=== PATIENT | male | born 1950 | race Caucasian/White ===

== ENCOUNTER → 2017-04-03 | Outpatient (CLI) | payer OTHER, MEDICARE | LOC: FIMAGING 07:00 | PROVIDERS: ATTEND Internal Medicine | DX: Z11.59 Encounter for screening for other viral diseases (principal) | CPT/HCPCS: 82627-90; G0103; G0472 ==

== ENCOUNTER → 2017-05-18 | Outpatient (CLI) | payer OTHER, MEDICARE | LOC: BHFA 09:30 | PROVIDERS: ATTEND Internal Medicine Cardiovascular Disease | DX: I48.91 Unspecified atrial fibrillation (principal) ==

== ENCOUNTER 2017-10-28 13:45 | Emergency (ER) | payer OTHER, MEDICARE ==
[2017-10-28 13:52] VITALS: TEMP 98.2
--- NOTE | 2017-10-28 14:25 | EDPHY ---
H & P Stated Complaint: abdominal pain and bloating starting approx 1100 Time Seen by Provider: 10/28/17 14:23 HPI/ROS: CHIEF COMPLAINT: Abdominal pain, constipation HISTORY OF PRESENT ILLNESS: The patient is to the ED with complaints of constipation for the past 2 and half days. The patient does report some mild lower abdominal pain. He has mild nausea but no vomiting. The patient denies significant past medical history. He takes no medications. The patient reports a negative colonoscopy in June of 2017. REVIEW OF SYSTEMS: A comprehensive 10 point review of systems is otherwise negative aside from elements mentioned in the history of present illness. Source: Patient Exam Limitations: No limitations - Personal History Current Tetanus/Diphtheria Vaccine: Yes Current Tetanus Diphtheria and Acellular Pertussis (TDAP): Yes Tetanus Vaccine Date: 2013 - Medical/Surgical History Hx Asthma: No Hx Chronic Respiratory Disease: No Hx Diabetes: No Hx Cardiac Disease: Yes Hx Renal Disease: No Hx Cirrhosis: No Hx Alcoholism: No Hx HIV/AIDS: No Hx Splenectomy or Spleen Trauma: No Other PMH: , ortho surg. in teens, A flutter, A fib, cardiac ablation, murmur, PERICARDITIS. - Social History Smoking Status: Former smoker - Physical Exam Exam: General Appearance: Alert, no distress Eyes: Pupils equal and round no pallor or injection ENT, Mouth: Mucous membranes moist Respiratory: There are no retractions, lungs are clear to auscultation Cardiovascular: Regular rate and rhythm Gastrointestinal: Abdomen is soft with minimal left lower quadrant tenderness, no masses, bowel sounds normal Rectal: Stool high in the rectal vault Neurological: Grossly normal motor exam Skin: Warm and dry, no rashes Musculoskeletal: Neck is supple nontender Extremities: symmetrical, full range of motion Constitutional: Initial Vital Signs Temperature (C) 36.8 C 10/28/17 13:48 Heart Rate 70 10/28/17 13:48 Respiratory Rate 18 10/28/17 13:48 Blood Pressure 167/96 H 10/28/17 13:48 O2 Sat (%) 97 10/28/17 13:48 O2 Delivery Mode Room Air Allergies/Adverse Reactions: No Known Allergies Allergy (Verified 10/28/17 13:47) Home Medications: Medication Instructions Recorded NK [No Known Home Meds] 10/28/17 Medical Decision Making - Diagnostics Imaging Results: Imaging Impressions Abdomen X-Ray 10/28/17 14:38 Impression: Constipation. ED Course/Re-evaluation: The patient presents to the ED with constipation. The patient did have stool high in his rectum. There is nothing to despite impacted in his lower rectum. The patient did undergo a soapsuds and fleets enema in the emergency department initially with minimal output. After some time the patient eventually had a large bowel movement with complete resolution of his symptoms. At 6:00 p.m. he is asymptomatic. The patient will be discharged home with customary aftercare instructions and return precautions. Differential Diagnosis: Differential diagnosis considered includes constipation, obstipation, obstruction, pancreatitis, diverticulitis - Data Points Laboratory Results: Laboratory Results 10/28/17 14:38 10/28/17 14:38 10/28/17 10/28/17 14:38 14:38 WBC 6.51 10^3/uL 10^3/uL (3.80-9.50) RBC 5.39 10^6/uL 10^6/uL (4.40-6.38) Hgb 15.5 g/dL g/dL (13.7-17.5) Hct 46.2 % % (40.0-51.0) MCV 85.7 fL fL (81.5-99.8) MCH 28.8 pg pg (27.9-34.1) MCHC 33.5 g/dL g/dL (32.4-36.7) RDW 14.0 % % (11.5-15.2) Plt Count 192 10^3/uL 10^3/uL (150-400) MPV 10.0 fL fL (8.7-11.7) Neut % (Auto) 67.9 % % (39.3-74.2) Lymph % (Auto) 20.9 % % (15.0-45.0) Mccone % (Auto) 8.0 % % (4.5-13.0) Eos % (Auto) 2.5 % % (0.6-7.6) Baso % (Auto) 0.5 % % (0.3-1.7) Nucleat RBC Rel Count 0.0 % % (0.0-0.2) Absolute Neuts (auto) 4.43 10^3/uL 10^3/uL (1.70-6.50) Absolute Lymphs (auto) 1.36 10^3/uL 10^3/uL (1.00-3.00) Absolute Monos (auto) 0.52 10^3/uL 10^3/uL (0.30-0.80) Absolute Eos (auto) 0.16 10^3/uL 10^3/uL (0.03-0.40) Absolute Basos (auto) 0.03 10^3/uL 10^3/uL (0.02-0.10) Absolute Nucleated RBC 0.00 10^3/uL 10^3/uL (0-0.01) Immature Gran % 0.2 % % (0.0-1.1) Immature Gran # 0.01 10^3/uL 10^3/uL (0.00-0.10) Sodium 141 mEq/L mEq/L (135-145) Potassium 4.2 mEq/L mEq/L (3.5-5.2) Chloride 105 mEq/L mEq/L (97-110) Carbon Dioxide 22 mEq/l mEq/l (22-31) Anion Gap 14 mEq/L mEq/L (8-16) BUN 21 mg/dL mg/dL (7-23) Creatinine 1.1 mg/dL mg/dL (0.7-1.3) Estimated GFR > 60 Glucose 86 mg/dL mg/dL (70-100) Calcium 9.4 mg/dL mg/dL (8.5-10.4) Total Bilirubin 0.6 mg/dL mg/dL (0.1-1.4) Conjugated Bilirubin 0.2 mg/dL mg/dL (0.0-0.5) Unconjugated Bilirubin 0.4 mg/dL mg/dL (0.0-1.1) AST 33 IU/L IU/L (17-59) ALT 39 IU/L IU/L (21-72) Alkaline Phosphatase 91 IU/L IU/L (38-126) Total Protein 7.4 g/dL g/dL (6.3-8.2) Albumin 4.2 g/dL g/dL (3.5-5.0) Lipase 233 IU/L IU/L (23-300) Medications Given: Discontinued Medications Sodium Chloride (Ns) 1,000 mls @ 0 mls/hr IV EDNOW ONE; Wide Open PRN Reason: Protocol Stop: 10/28/17 14:29 Last Admin: 10/28/17 14:40 Dose: 1,000 mls Polyethylene Glycol/Electrolytes (Gavilyte - G) 4,000 ml PO ONCE ONE Stop: 10/28/17 17:43 Last Admin: 10/28/17 18:00 Dose: 4,000 ml Departure - Departure Disposition: Home, Routine, Self-Care Clinical Impression: Constipation Qualifiers: Constipation type: other constipation type Qualified Code(s): K59.09 - Other constipation Abdominal pain Qualifiers: Abdominal location: left lower quadrant Qualified Code(s): R10.32 - Left lower quadrant pain Condition: Good Instructions: Constipation (ED) Additional Instructions: 1. Please return to the emergency department for any severe abdominal pain, vomiting or other concerns. 2. Please use milk of magnesia and fiber supplementation for ongoing symptoms of constipation. Referrals: Mouna Marcos MD [Primary Care Provider] - As per Instructions
[2017-10-28] MEDS ORDERED: NS 1,000 ML IV ONE (14:28)
[2017-10-28 15:05] LABS: PLATELET COUNT 192 10^3/uL (150-400)
[2017-10-28 15:34] VITALS: RESP 16; O2SAT 95
[2017-10-28] MEDS ORDERED: PEG 3350/NA SULF,BICARB,CL/KCL (GAVILYTE-G) 4000 ML BTL PO ONE (17:42)
[2017-10-28 18:02] VITALS: BP 164/94; PULSE 81
== END 2017-10-28 18:00 | disposition home or self-care (01) ==
DX: K59.09 Other constipation (principal); E86.9 Volume depletion, unspecified

== ENCOUNTER → 2017-12-28 | Day surgery (SDC) | payer OTHER, MEDICARE ==
--- NOTE | 2017-12-31 13:59 | GOP ---
[f rep st] OPERATIVE REPORT DATE OF OPERATION: 12/28/2017 SURGEON: King Alvarenga MD PREOPERATIVE DIAGNOSIS: Elevated prostate specific antigen. POSTOPERATIVE DIAGNOSIS: Elevated prostate specific antigen. PROCEDURE PERFORMED: Transrectal ultrasound of the prostate with ultrasound-guided biopsies of the p rostate. FINDINGS: INDICATIONS: The patient is a 67-year-old male with elevated PSA. After discussing options, he elec sidney to come in for prostate biopsies. DESCRIPTION OF PROCEDURE: After informed consent and with the patient in the left lateral decubitus position, the transrectal ultrasound probe was inserted into the bladder. Images were taken and the volume was calculated. The periprosthetic tissue was anesthetized with 10 mL of 1% lidocaine. Then, 12 core biopsies were obtained from the right and left base mid and apical regions. The patient max erated the procedure well and was discharged in stable condition. /[id number]/MODL
== END | disposition home or self-care (01) ==
LOC: BMCIMAGING 07:09
PROVIDERS: ATTEND Urology
PROC: 0VB03ZX Excision of Prostate, Percutaneous Approach, Diagnostic (ICD-10-PCS; principal; 2017-12-28)
DX: R97.20 Elevated prostate specific antigen [PSA] (principal)

== ENCOUNTER → 2018-02-07 | Outpatient (CLI) | payer OTHER, MEDICARE ==
[~2018-02-07] MED LIST: GADOBUTROL 10 ML VIAL IVP ONE
== END ==
LOC: FIMAGING 07:31
PROVIDERS: ATTEND Urology
DX: C61 Malignant neoplasm of prostate (principal); K57.30 Diverticulosis of large intestine without perforation or abscess without bleeding
CPT/HCPCS: 72197; 76377; A9585

== ENCOUNTER → 2018-10-15 | Outpatient (CLI) | payer OTHER, MEDICARE | LOC: FIMAGING 07:29 | PROVIDERS: ATTEND Urology | DX: C61 Malignant neoplasm of prostate (principal) | CPT/HCPCS: 72197; 76377; A9585; 82565-PO ==

== ENCOUNTER → 2018-11-05 | Outpatient (CLI) | payer OTHER, MEDICARE | LOC: BMCIMAGING 09:09 | PROVIDERS: ATTEND Urology | DX: R05 Cough (principal); C61 Malignant neoplasm of prostate ==

== ENCOUNTER → 2018-11-12 | Outpatient (CLI) | payer OTHER, MEDICARE ==
[~2018-11-12] MED LIST changes: -GADOBUTROL 10 ML VIAL IVP ONE; +IOPAMIDOL (ISOVUE-300) 100 ML BTL ONE
== END ==
LOC: FIMAGING 07:37
PROVIDERS: ATTEND Urology
DX: K76.9 Liver disease, unspecified (principal); K57.30 Diverticulosis of large intestine without perforation or abscess without bleeding; C61 Malignant neoplasm of prostate; M47.815 Spondylosis without myelopathy or radiculopathy, thoracolumbar region
CPT/HCPCS: 74177; Q9967

== ENCOUNTER → 2018-11-19 | Outpatient (CLI) | payer OTHER, MEDICARE | LOC: FIMAGING 08:13 | PROVIDERS: ATTEND Urology | DX: Z12.89 Encounter for screening for malignant neoplasm of other sites (principal); C61 Malignant neoplasm of prostate | CPT/HCPCS: 78306; A9503 ==

== ENCOUNTER 2018-12-10 05:30 | Inpatient (IN) | payer OTHER, MEDICARE ==
[2018-12-10] MEDS ORDERED: ceFAZolin 2 GM/DEXTROSE 100 ML IV ONE (05:55)
[2018-12-10] MEDS ORDERED: LR 1,000 ML IV ONE (05:56)
--- NOTE | 2018-12-10 06:43 | PDHPUP ---
History & Physical Update H&P update statement: This history and physical update is based on an assessment of the patient which was completed after admission or registration (within 24 hours), but prior to the surgery/procedure. H&P update: H&P reviewed & patient examined, no change in patient's condition since H&P completed
[2018-12-10] MEDS ORDERED: MIDAZOLAM 2 MG/2 ML VIAL ONE (07:07)
[2018-12-10] MEDS ORDERED: BUPIVACAINE 0.5% 30 ML SDV ONE (07:09)
[2018-12-10] MEDS ORDERED: MIDAZOLAM 2 MG/2 ML VIAL IVP ONE (07:11)
--- NOTE | 2018-12-10 07:11 | PDANEPAE ---
ANE History of Present Illness here for radical prostatectomy for prostate CA ANE Past Medical History - Cardiovascular History Hx Hypertension: No Hx Arrhythmias: Yes Hx Chest Pain: No Hx Coronary Artery / Peripheral Vascular Disease: No Hx CHF / Valvular Disease: No Hx Palpitations: No Cardiovascular History Comment: PREV A-FIB LAST ABLATION 11/2014. NONE SINCE THEN - Pulmonary History Hx COPD: No Hx Asthma/Reactive Airway Disease: No Hx Recent Upper Respiratory Infection: Yes Hx Oxygen in Use at Home: No Hx Sleep Apnea: No Sleep Apnea Screening Result - Last Documented: Positive Pulmonary History Comment: DX KIP 02/2015 DIFFICULTY IN GETTING C-PAP GAVE UP HAD RECENT PULSE OXIMETRY TESTING. TO BRING RESULTS DOS. URI 09/2018 RESIDUAL NON PRODUCTIVE COUGH - Neurologic History Hx Cerebrovascular Accident: No Hx Seizures: No Hx Dementia: No - Endocrine History Hx Diabetes: No - Renal History Hx Renal Disorders: No - Liver History Hx Hepatic Disorders: No - Neurological & Psychiatric Hx Hx Neurological and Psychiatric Disorders: No - Cancer History Hx Cancer: Yes Cancer History Comment: NEW DX PROSTATE CA - Congenital Disorder History Hx Congenital Disorders: No - GI History Hx Gastrointestinal Disorders: No - Other Health History Other Health History: DDD RECENT ANGELICA - Chronic Pain History Chronic Pain: No - Surgical History Prior Surgeries: ANGELICA LOWER BACK 02/2018. HEART ABLATION X2 MOST RECENT 11/2014. ORIF JAW. LT EYE DETACHED RETINA ANE Review of Systems Review of Systems: - Exercise capacity METS (RN): 4 METS ANE Patient History - Allergies Allergies/Adverse Reactions: No Known Allergies Allergy (Verified 10/28/17 13:47) - Home Medications Home Medications: Ibuprofen [Motrin (*)] 200 mg PO TID PRN 11/19/18 [Last Taken 11/26/18] - NPO status NPO Since - Liquids (Date): 12/09/18 NPO Since - Liquids (Time): 21:00 NPO Since - Solids (Date): 12/09/18 NPO Since - Solids (Time): 12:00 - Smoking Hx Smoking Status: Former smoker - Family Anes Hx Family Hx Anesthesia Complications: NEG ANE Labs/Vital Signs - Vital Signs Blood Pressure: 148/80 Heart Rate: 83 Respiratory Rate: 16 O2 Sat (%): 94 Height: 182.88 cm Weight: 97.522 kg ANE Physical Exam - Airway Neck exam: FROM Mallampati Score: Class 2 Mouth exam: normal dental/mouth exam - Pulmonary Pulmonary: no respiratory distress, no rales or rhonchi - Cardiovascular Cardiovascular: regular rate and rhythym, no murmur, rub, or gallop - ASA Status ASA Status: III ANE Anesthesia Plan Anesthesia Plan: general endotracheal anesthesia Total IV Anesthesia: No
[2018-12-10] MEDS ORDERED: LIDOCAINE 2% 100 MG/5 ML SYR ONE (07:14)
[2018-12-10] MEDS ORDERED: ROCURONIUM 100 MG/10 ML VIAL ONE ×2 (07:14→07:50)
[2018-12-10] MEDS ORDERED: PROPOFOL 200 MG/20 ML VIAL ONE ×2 (07:15→09:52)
[2018-12-10] MEDS ORDERED: fentaNYL 100 MCG/2 ML INJ ONE ×2 (07:15→07:50)
[2018-12-10] MEDS ORDERED: SUGAMMADEX SODIUM 200 MG/2 ML VIAL IVP ONE (07:50)
[2018-12-10] MEDS ORDERED: METOPROLOL TARTRATE 5 MG/5 ML INJ ONE (07:50)
[2018-12-10] MEDS ORDERED: DEXAMETHASONE 4 MG/ML VIAL ONE (07:50)
[2018-12-10] MEDS ORDERED: ONDANSETRON 4 MG/2 ML VIAL ONE (07:50)
[2018-12-10] MEDS ORDERED: HYDROmorphONE/DILAUDID 2 MG/ML INJ IVP PRN (09:39)
[2018-12-10] MEDS ORDERED: NALOXONE HCL 0.4 MG/ML INJ IVP PRN (09:39)
[2018-12-10] MEDS ORDERED: MEPERIDINE 25 MG/0.5 ML AMP IVP PRN (09:39)
[2018-12-10] MEDS ORDERED: oxyCODONE IR 5 MG TAB PO PRN (09:39)
[2018-12-10] MEDS ORDERED: LABETALOL HCL 5 MG/ML 20 ML MDV IVP PRN (09:39)
[2018-12-10] MEDS ORDERED: PROMETHAZINE HCL 25 MG/ML INJ IVP PRN (09:39)
[2018-12-10] MEDS ORDERED: fentaNYL 100 MCG/2 ML INJ IVP PRN (09:39)
[2018-12-10] MEDS ORDERED: DIAZEPAM 5 MG/ML 1 ML SYR IVP PRN (09:39)
[2018-12-10] MEDS ORDERED: LR 500 ML IV PRN (09:39)
[2018-12-10] MEDS ORDERED: ACETAMINOPHEN 500 MG TAB PO PRN (09:39)
[2018-12-10] MEDS ORDERED: PHENYLEPHRINE HCL 100 MCG/ML SYR IVP PRN (09:39)
[2018-12-10] MEDS ORDERED: HYDROmorphONE/DILAUDID 2 MG/ML INJ ONE (09:59)
[2018-12-10] MEDS ORDERED: KETOROLAC 30 MG/1 ML SDV ONE (09:59)
[2018-12-10] MEDS ORDERED: HYDROmorphONE/DILAUDID 1 MG/ML INJ IVP PRN (10:28)
[2018-12-10] MEDS ORDERED: ACETAMINOPHEN 325 MG TAB PO PRN (10:28)
[2018-12-10] MEDS ORDERED: ZOLPIDEM TARTRATE 5 MG TAB PO PRN (10:30)
--- NOTE | 2018-12-10 10:41 | POSTOPPROG ---
Post Op Note Date of Operation: 12/10/18 Surgeon: Krzysztof Suarez [employer] Specialist: SUNNY Murphy Consult- Dr Abbott Anesthesiologist: Demond Anesthesia: GET(General Endotracheal) Pre-op Diagnosis: Prostate Cancer Post-op Diagnosis: Same Indication: Prostate cancer Procedure: Robotic Assisted Radical Prostatectomy, Bilateral Pelvic Lymph Node Dissect Findings: Small tear in mesentery Inf/Abcess present in the surg proc area at time of surgery?: No Depth: Organ Space EBL: 50-100 Drains: Quinn Funez Specimen(s): Prostate and bilateral pelvic lymph nodes
[2018-12-10] MEDS ORDERED: D5W 1/2 NS 1,000 ML IV SCH (10:45)
--- NOTE | 2018-12-10 10:52 | POSTANESTH ---
Post Anesthetic Evaluation Cardiovascular Status: Normal, Stable Respiratory Status: Normal, Stable Level of Consciousness/Mental Status: Can Participate in Eval, Alert and Oriented Pain Control: Adequate, Prn Tx Ordered Nausea/Vomiting Control: Adequate, Prn Tx Ordered Complications Possibly Related to Anesthesia: None Noted (No repeat episodes of the Afib with RVR throughout the case or inthe post operative course in PACU. Did recommend a monitored bed for the next 24 hours)
--- NOTE | 2018-12-10 11:37 | GOP ---
[f rep st] OPERATIVE REPORT DATE OF OPERATION: 12/10/2018 SURGEON: Krzysztof Suarez MD REGULATOR TESTER: Barb Newton CFA ANESTHESIA: General. PREOPERATIVE DIAGNOSIS: Prostate cancer. POSTOPERATIVE DIAGNOSIS: Prostate cancer. PROCEDURE PERFORMED: Robotic assisted radical prostatectomy with bilateral pelvic lymph node dissect ion. FINDINGS: INDICATIONS: This is a gentleman with biopsy-proven prostate cancer. Discussion was had with the pa tient about the risks and benefits of the variety of treatment options, and he decided on robotic pro statectomy. DESCRIPTION OF PROCEDURE: Consent was obtained. Patient was brought to the operating room. A time- out was done where the patient was identified, as well as the procedure that was to be performed. Wh ile he was being prepped for the operation, it was noted that he went into rapid atrial fibrillation. This was quickly taken care of with IV metoprolol and he returned to normal sinus rhythm with a nor mal rate rapidly. Decision was made to proceed with the operation. The skin was prepped and draped in the normal sterile fashion. A small incision was made just above the umbilicus. This was carried down sharply and with blunt dissection down to the rectus fascia. T he rectus fascia was then cut with Metzenbaum scissors and a trocar was inserted. When the camera wa s put in place and CO2 insufflation was begun, it was noted that there was a small tear in the mesent gurvinder just below the site of the trocar. At this point, a consultation was obtained by Dr. Abbott who came in to look at this tear in the fat. His belief was that this was strictly a tear in the fat and there was no evidence of any other injuries, specifically to the bowel or to any significant blo od vessels. Four additional ports were put into place, all under video guidance, 2 on the right, 2 o n the left, 3 of which were robotic ports, the 4th with an assistant director of security port. [place] dissectors and scissors were utilized to do a bilateral pelvic lymph node dissection. This was done by incising the peritoneum overlying the iliac artery and vein. There a were few adhesions in the left lower quadrant that had to be taken prior to this. Once the retroperitoneum was opened, the iliac external iliac vein was identified on either side and dissection was done between it and the obturator nerve, and the lymph node packet was taken on either side and sent to Pathology for permanent section. There was no evidence of any significant bleeding and decision was then made on the anterior peritoneum until the space of Retzius could be entered. This was carried down to the symphysis pubis and out laterally. The fat overlying the pelvic fascia was excised and incision was made in the fascia lateral to the prostate on either side. The pubopros tatic ligaments were taken down sharply. The dorsal vein was tied tightly with a 0 Vicryl suture. A n incision was then made between the bladder and the prostate. The bladder was opened and the Donaldson catheter brought out through this incision. The dissection was continued until the bladder was compl etely from the prostate. The catheter was then put on traction so as to elevate the prosta te. Dissection was continued posteriorly through Denonvilliers' fascia until the bilateral vas defer ens were cut and the seminal vesicles were dissected out. The lateral pedicles were taken with clips and cautery. The dissection was continued out toward the apex. The dorsal vein complex was then cu t with electrocautery. The urethra was cut with scissors. The rectal urethralis attachments were ta noel sharply and the prostate was then from its bed. It was put into a bag for later remova l. There was no evidence of any significant bleeding. The anastomosis was then done between the hayden dder neck and the urethra utilizing a double-armed barbed suture. This was done over a Donaldson cathete r and when the Donaldson catheter was irrigated, there was no evidence of any leakage. At this point, Dr. Abbott came back in the room to reinspect the tear in the fat, and once again, there was no evidence of any change in this. There was no bleeding and no evidence of any bile leak . The decision was made to leave this alone and let it heal on its own. The Quinn-Funez drain was then put in through the right lateral trocar and put down toward the pelvis. The robot was undocke d. The midline incision was made slightly larger so the prostate could be brought through the incisi on. It was sent to Pathology for identification and pathologic examination. The rectus fascia was c losed with a 2-0 Vicryl suture. The skin was closed with 4-0 Monocryl. All needle, sponge, instrume nt counts were correct. The patient remained in normal sinus rhythm throughout the case once it was normalized. There were no other complications. He was transferred to the recovery room in good cond ition. CONSULT: Dr. Abbott. /[id number]/MODL
[2018-12-10] MEDS: HEPARIN 5,000 UNIT/0.5 ML INJ SC SCH ×2 (14:10→22:44)
--- NOTE | 2018-12-10 14:43 | GOP ---
[f rep st] OPERATIVE REPORT DATE OF OPERATION: 12/10/2018 SURGEON: Du Abbott MD RETAIL SALESPERSON: None. ANESTHESIA: General endotracheal. ANESTHESIOLOGIST: Kleber Lagos DO. PREOPERATIVE DIAGNOSIS: Possible bowel injury. POSTOPERATIVE DIAGNOSIS: Possible bowel injury. PROCEDURE PERFORMED: Intraoperative consultation, abdominal exploration, rule out bowel injury. FINDINGS: It appears as though during cutdown, there was a small mesenteric injury, which was done sharply. I see no damage to any great vessels, any bowel , or any major vascular structure. SPECIMENS: None. ESTIMATED BLOOD LOSS: 2 cc. INDICATIONS: This is an intraoperative consultation by Dr. Suarez. Briefly, the patient was undergoing a prostatectomy, and, upon entering the abdomen, there was a question of whether or not there was a bowel injury. I was asked once the patient was prepped and draped to come in and determine whether or not there was a bowel injury. DESCRIPTION OF PROCEDURE: Again, the patient had already been prepped and draped. I was asked to come in. The area was identified by Dr. Suarez. I took control through the robot and interrogated the area. It appeared as though during cutdown there was damage to the anterior portion of the patient's mesentery. I interrogated this robotically, both on my initial consultation and after the prostatectomy was performed. I identified no bowel injury, no major vascular structure injury, or anything else concerning. It appeared as though it was a superficial mesenteric injury with no untoward effects. I subsequently handed the procedure over to Dr. Suarez to finish the prostatectomy in stable condition. DRAINS: None. /[id number]/MODL MTDD
--- NOTE | 2018-12-10 17:26 | PDMN ---
Medical Necessity Medical necessity: [facility] IP only surgery; Radical Prostatectomy [id number]
[2018-12-10] MEDS: HYDROCODONE/APAP 5/325 TAB PO PRN (18:42)
[2018-12-11] MEDS: HYDROCODONE/APAP 5/325 TAB PO PRN ×2 (04:16→10:14)
[2018-12-11 05:07] LABS: PLATELET COUNT 222 10^3/uL (150-400)
[2018-12-11] MEDS: HEPARIN 5,000 UNIT/0.5 ML INJ SC SCH ×2 (05:44→14:21)
--- NOTE | 2018-12-11 07:20 | SOAPPROG ---
SOAP Progress Note Assessment/Plan: Assessment: doing well post op day 1 feels well tolerating diet ambulating Plan: will eat regular diet this am likely remove lorenzo today likely dc later today 12/11/18 07:18 Subjective: vital signs all stable abd soft, tender in lower quadrants urine clearing Objective: Vital Signs Temp Pulse Resp BP Pulse Ox 36.9 C 73 20 144/71 H 98 12/11/18 04:11 12/11/18 04:11 12/11/18 04:11 12/11/18 04:11 12/11/18 04:11 Laboratory Results 12/11/18 04:34 12/11/18 04:34 12/10/18 12/11/18 12/12/18 05:59 05:59 05:59 Intake Total 2880 Output Total 1715 Balance 1165 - Pending Discharge Pending Discharge Within 24 Hours: Yes Pending Discharge Date: 12/12/18 Pending Discharge Time: 11:00 ICD10 Worksheet Patient Problems: Problems Problem Status Onset Atrial fibrillation Acute Dizziness Acute
--- NOTE | 2018-12-11 08:09 | SOAPPROG ---
CORY Progress Note Assessment/Plan: Assessment: 68yo M POD#1 s/p robot prostatectomy - VSS, HDS, afebrile - pain is controlled - tolerating diet, some belching but doing well overall - ambulate, go slow with diet - ok for dc later todayt per urology, my contact info has been provided should he have questions or concerns, no need for formal follow up however Plan: 12/11/18 08:08 Subjective: tolerating a diet, pain controlled Objective: Vital Signs Temp Pulse Resp BP Pulse Ox 36.9 C 73 20 144/71 H 98 12/11/18 04:11 12/11/18 04:11 12/11/18 04:11 12/11/18 04:11 12/11/18 04:11 Laboratory Results 12/11/18 04:34 12/11/18 04:34 12/10/18 12/11/18 12/12/18 05:59 05:59 05:59 Intake Total 2880 Output Total 1715 Balance 1165 ICD10 Worksheet Patient Problems: Problems Problem Status Onset Atrial fibrillation Acute Dizziness Acute
[2018-12-11] MEDS ORDERED: chlorproMAZINE HCL 25 MG TAB PO ONE (09:45)
--- NOTE | 2018-12-11 13:01 | GDS ---
[f rep st] DISCHARGE SUMMARY ADMITTING DIAGNOSIS: Prostate cancer. DISCHARGE DIAGNOSIS: Prostate cancer. HOSPITAL COURSE: This is a gentleman who was admitted to the hospital on December 10 with a diagnosis of prostate cancer. He underwent a robotic prostatectomy and details of this operation can be found under separate dictation. While in the operating room, he had a short course of rapid atrial fibril lation and for this reason he was left in a monitored bed and seen by the hospitalist service. He re mained in sinus rhythm from after the short run prior to the surgery until the time of discharge with out any sequelae. By postop day 1, he was ambulating and tolerating a diet. He was able to pass fla tus. His urine had cleared and he was making adequate urine output. His laboratory studies all ingrid ined normal. His only problem on postop day 1 was hiccups. He was treated with Thorazine and feels ready for discharge. He will be discharged to home with a Donaldson catheter in place and follow up with me next week for its removal. The pathology from the surgery is pending at the time of his discharg damaso /[id number]/MODL
--- NOTE | 2018-12-11 14:12 | ASMTCMCOM ---
CM Note CM Note Notes: Patient admitted for prostatectomy, will d/c home with [place] and follow-up for removal next week. No CM needs identified at this time. CM available should something change. Plan: Likely independent. Date Signed: 12/11/2018 02:11 PM Electronically Signed By:Gita Haq RN
--- NOTE | 2018-12-11 14:12 | ASMTLACE ---
LACE Length of stay for Answers: Less than 1 day current admission Acuity / Level of Answers: Yes Care: Did the patient have an inpatient admission? Comorbidities - select Answers: Any tumor (including all that apply lymphoma or leukemia) Other Notes: AFib # of Emergency department Answers: 0 visits in the last 6 months Score: 6 Date Signed: 12/11/2018 02:12 PM Electronically Signed By:Gita Haq RN
[2018-12-11 14:16] VITALS: BP 128/69
--- NOTE | 2018-12-11 15:31 | PDHOSCONS ---
History and Physical - Chief Complaint medical mgmt, afib - History of Present Illness This is a 68 yo male who was admitted for s/p robotic prostatectomy. During the procedure, there appears to have been a small mesenteric injury. In addition, post operatively, he was noted to be in afib. It is unclear if medication was provided. Upon further questions he has a hx of Afib since 2013 at which time he was on rate controlling agents and AC. He had ablation in 2013 and 2014 and since Aug he has been off meds. His care is obtained from [facility]. He has not had any known recurrences of Afib until this event post operatively. He attributes it to bowel prep, dehydration, and surgery. He does not want any meds to be started. He denies palpitations, chest pain, sob, or other. He does have some hiccups which he typically does not have. He denies leg swelling PMHx: prostate cancer afib ablation soc hx: non smoker fmHx: non contributory History Information - Allergies/Home Medication List Allergies/Adverse Reactions: No Known Allergies Allergy (Verified 10/28/17 13:47) Home Medications: Ibuprofen [Motrin (*)] 200 mg PO TID PRN 11/19/18 [Last Taken 11/26/18] I have personally reviewed and updated: medical history, social history - Social History Smoking Status: Former smoker Review of Systems Review of Systems: ROS: 10pt was reviewed & negative except for what was stated in HPI & below Physical Exam Physical Exam: Temp Pulse Resp BP Pulse Ox 36.9 C 76 17 128/69 H 94 12/11/18 14:15 12/11/18 14:15 12/11/18 14:15 12/11/18 14:15 12/11/18 14:15 O2 (L/minute) 1.25 Constitutional: no apparent distress, appears nourished Eyes: PERRL, EOMI Ears, Nose, Mouth, Throat: moist mucous membranes, hearing normal Cardiovascular: regular rate and rhythym, edema (trace LE edema) Respiratory: no respiratory distress, no rales or rhonchi, clear to auscultation Skin: warm Neurologic: AAOx3 Psychiatric: interacting appropriately, not anxious, not encephalopathic Lymph, Heme, Immunologic: No petechiae Lab Data & Imaging Review 12/11/18 04:34 12/11/18 04:34 WBC 8.51 10^3/uL (3.80-9.50) 12/11/18 04:34 RBC 4.70 10^6/uL (4.40-6.38) 12/11/18 04:34 Hgb 13.7 g/dL (13.7-17.5) 12/11/18 04:34 Hct 42.1 % (40.0-51.0) 12/11/18 04:34 MCV 89.6 fL (81.5-99.8) 12/11/18 04:34 MCH 29.1 pg (27.9-34.1) 12/11/18 04:34 MCHC 32.5 g/dL (32.4-36.7) 12/11/18 04:34 RDW 14.0 % (11.5-15.2) 12/11/18 04:34 Plt Count 222 10^3/uL (150-400) 12/11/18 04:34 MPV 10.3 fL (8.7-11.7) 12/11/18 04:34 Neut % (Auto) 71.1 % (39.3-74.2) 12/11/18 04:34 Lymph % (Auto) 14.3 % (15.0-45.0) L 12/11/18 04:34 [place] % (Auto) 14.1 % (4.5-13.0) H 12/11/18 04:34 Eos % (Auto) 0.0 % (0.6-7.6) L 12/11/18 04:34 Baso % (Auto) 0.1 % (0.3-1.7) L 12/11/18 04:34 Nucleat RBC Rel Count 0.0 % (0.0-0.2) 12/11/18 04:34 Absolute Neuts (auto) 6.05 10^3/uL (1.70-6.50) 12/11/18 04:34 Absolute Lymphs (auto) 1.22 10^3/uL (1.00-3.00) 12/11/18 04:34 Absolute Monos (auto) 1.20 10^3/uL (0.30-0.80) H 12/11/18 04:34 Absolute Eos (auto) 0.00 10^3/uL (0.03-0.40) L 12/11/18 04:34 Absolute Basos (auto) 0.01 10^3/uL (0.02-0.10) L 12/11/18 04:34 Absolute Nucleated RBC 0.00 10^3/uL (0-0.01) 12/11/18 04:34 Immature Gran % 0.4 % (0.0-1.1) 12/11/18 04:34 Immature Gran # 0.03 10^3/uL (0.00-0.10) 12/11/18 04:34 Sodium 134 mEq/L (135-145) L 12/11/18 04:34 Potassium 4.5 mEq/L (3.5-5.2) 12/11/18 04:34 Chloride 104 mEq/L (97-110) 12/11/18 04:34 Carbon Dioxide 23 mEq/l (22-31) 12/11/18 04:34 Anion Gap 7 mEq/L (6-14) 12/11/18 04:34 BUN 19 mg/dL (7-23) 12/11/18 04:34 Creatinine 1.2 mg/dL (0.7-1.3) 12/11/18 04:34 Estimated GFR 60 12/11/18 04:34 Glucose 139 mg/dL (70-100) H 12/11/18 04:34 Calcium 8.2 mg/dL (8.5-10.4) L 12/11/18 04:34 Peritoneal Creatinine 1.1 mg/dL 12/11/18 09:00 Patient ABO/Rh O POSITIVE 12/10/18 06:38 Antibody Screen NEGATIVE 12/10/18 06:38 Assessment & Plan Assessment: #Afib in post operative period in pt with hx of afib s/p ablation -likely attributable to slight dehydration and post operative stress -he does not want any new meds -EKG obtained today, reviewed, no e/o Afib -ok to d/c off meds, f/u with [facility] in 2-4 weeks #s/p prostatectomy with possible mesenteric injury. evaluated by surgery with no e/o damage to vessel, bowel, or major vasculature -mgmt per primary #Hiccups, just received Thorazine. monitor. likely transient episode Thank you for this consult. The pt is ok to d/c from hospitalist perspective
--- NOTE | 2018-12-12 11:21 | CPEKG ---
Test Reason : Afib Blood Pressure : / mmHG Vent. Rate : 082 BPM Atrial Rate : 082 BPM P-R Int : 164 ms QRS Dur : 090 ms QT Int : 364 ms P-R-T Axes : 080 077 062 degrees QTc Int : 426 ms SINUS RHYTHM Sinus rhythm has replaced atrial fibrillation noted on prior Confirmed by Trip Villanueva ([id number]) on 12/12/2018 11:20:53 AM Referred By: Krzysztof Suarez Confirmed By:Trip Villanueva
== END 2018-12-11 17:40 | disposition home or self-care (01) | DRG 708 ==
LOC: F1N 05:30
PROVIDERS: ADMIT Urology; ATTEND Urology
PROC: 8E0W0CZ Robotic Assisted Procedure of Trunk Region, Open Approach (ICD-10-PCS; principal; 2018-12-10 07:15)
PROC: 0VT04ZZ Resection of Prostate, Percutaneous Endoscopic Approach (ICD-10-PCS; principal; 2018-12-10 07:15)
DX: C61 Malignant neoplasm of prostate (principal); R06.6 Hiccough; I48.0 Paroxysmal atrial fibrillation; G47.33 Obstructive sleep apnea (adult) (pediatric); M51.26 Other intervertebral disc displacement, lumbar region; M25.552 Pain in left hip; Z87.891 Personal history of nicotine dependence
CPT/HCPCS: J0690; J1100; J1170; J1644; J1885; J2001; J2250; J2405; J2704; J3010

== ENCOUNTER 2018-12-12 19:40 | Inpatient (IN) | payer OTHER, MEDICARE ==
--- NOTE | 2018-12-12 19:47 | EDPHY ---
H & P Stated Complaint: Lower abd pain, recent prostatectomy, nausea, poor catheter drainage Time Seen by Provider: 12/12/18 19:47 - Personal History Current Tetanus Diphtheria and Acellular Pertussis (TDAP): Yes Tetanus Vaccine Date: 2013 - Medical/Surgical History Hx Asthma: No Hx Chronic Respiratory Disease: No Hx Diabetes: No Hx Cardiac Disease: Yes Hx Renal Disease: No Hx Cirrhosis: No Hx Alcoholism: No Hx HIV/AIDS: No Hx Splenectomy or Spleen Trauma: No Other PMH: , ortho surg. in teens, A flutter, A fib, cardiac ablation, murmur, PERICARDITIS, prostate surg November 2017 - Social History Smoking Status: Former smoker Constitutional: Initial Vital Signs Temperature (C) 37.8 C 12/12/18 19:43 Heart Rate 119 H 12/12/18 19:43 Respiratory Rate 18 12/12/18 19:43 Blood Pressure 141/90 H 12/12/18 19:43 O2 Sat (%) 92 12/12/18 19:43 O2 Delivery Mode Room Air Allergies/Adverse Reactions: No Known Allergies Allergy (Verified 12/12/18 19:45) Home Medications: Medication Instructions Recorded Ibuprofen [Motrin (*)] 200 mg PO TID PRN 11/19/18 Hydrocodone/Acetaminophen [Lapaz 1 each PO Q6HRS PRN 4 Days #12 12/11/18 5-325 Tablet] tablet chlorproMAZINE HCL [Thorazine (*)] 25 mg PO BID PRN 5 Days #10 tab 12/11/18 Medical Decision Making ED Course/Re-evaluation: CHIEF COMPLAINT: Clogged urinary catheter HISTORY OF PRESENT ILLNESS: The patient is a 68 y/o male with a history of a prostatectomy (12/10/17) and atrial fibrillation requiring an ablation complaining of a "clogged catheter". The patient had a prostatectomy with Dr. Padgett 2 days ago. The patient was discharged home yesterday without any complications. Today the patient noticed that the catheter was clogged and he tried to change the bag. However, this did not fix the catheter problems. He saw a urologist to change the catheter, which also did not improve his symptoms. The patient also feels nauseous and has a decreased appetite. He has had around 40-50 ounces of fluid today, but this is not draining into the leg bag. He feels like his abdomen is distended due to a full bladder. No fever, headache, body aches, lightheadedness, chest pain, heart palpitations, shortness of breath, cough, bowel complaints, numbness, paresthesias. Prior to the surgery he was in atrial fibrillation and was given Metoprolol. After receiving this medication he has not been in a-fib again. Currently he does not feel like he is in a-fib, but he does have a high heart rate. REVIEW OF SYSTEMS: A comprehensive 10 system review of systems is otherwise negative aside from elements mentioned in the history of present illness and medical decision making. PHYSICAL EXAM: HR, BP, O2 Sat, RR. Temp noted General Appearance: Alert, well hydrated, appropriate, and non-toxic appearing. Head: Atraumatic without scalp tenderness or obvious injury Eyes: Pupils equal, round, reactive to light and accommodation, EOMI, no trauma , no injection. Ears: Clear bilaterally, no perforation, normal landmarks Nose: Atraumatic, no rhinorrhea, clear. Throat: There is no erythema or exudates, no lesions, normal tonsils, mucus membranes moist. Neck: Supple, 2+ carotid upstroke, nontender, no lymphadenopathy. Respiratory: No retractions, no distress, no wheezes, and no accessory muscle use. Lungs are clear to auscultation bilaterally. Cardiovascular: Tachycardic, not in atrial fibrillation, no murmurs, rubs, or gallops. Bilateral carotid, radial, dorsalis pedis, and posterior tibial pulses intact. Good capillary refill all extremities. Gastrointestinal: Gross blood in leg bag from urinary catheter. Distended lower abdomen. Abdomen is soft, nontender, no masses, no rebound, no guarding, no peritoneal signs. Musculoskeletal: Normal active ROM of all extremities, atraumatic. Neurological: Alert, appropriate, and interactive. The patient has normal DTRs and non-focal cranial nerves, motor, sensory, and cerebellar exam. Skin: No rashes, good turgor, no nodules on palpation. Past medical history: A flutter, A fib, murmur, pericarditis Past surgical history: Prostatectomy (12/10/18), cardiac ablation, orthopedic surgeries Family history: Denies Social history: at bedside, retired, lives in [place] DIAGNOSTICS/PROCEDURES/CRITICAL CARE TIME: Not indicated. DIFFERENTIAL DIAGNOSIS: The differential diagnosis for the patient's urinary retention included but was not limited to prostatectomy complication, medication side effect, neurologic causes, outflow obstruction including prostatic hypertrophy, and infection. MEDICAL DECISION MAKING: The patient is a 68 y/o male with a history of a prostatectomy (12/10/17) and atrial fibrillation requiring an ablation presenting with a "clogged catheter". The patient had a prostatectomy with Dr. Padgett 2 days ago. Today the patient noticed that the catheter was clogged and he tried to change the bag which did not fix the catheter problems. He saw a urologist to change the catheter, which also did not improve his symptoms. He feels like his abdomen is distended due to a full bladder. On exam the patient has gross blood in his leg bag and has a distended lower abdomen. The patient is tachycardic but not in a-fib. Patient is having a post-operative catheter obstruction. We will attempt to fix the catheter problems without removing the catheter. Patient will also have a bladder scan. Labs not indicated. 1L IV NS and 4mg IV Zofran administered. 2040: Patient's nurse reports that the bladder scan reveals no urine in the bladder. She also reports that the catheter is working. The patient is still in significant pain and might be having bladder spasms. 2041: I consulted with Dr. Norwood, urologist, regarding patient. Patient will need to be admitted for bladder spasms and pain management. Dr. Norwood will consult on this patient during his admission. 5mg PO Oxybutynin TID administered. Labs ordered. 2049: Reassessed patient and discussed plan for admission, which he is comfortable with. Patient still feels nauseated and is not drinking fluids well. Patient will need to be admitted for rehydration. 2051: I consulted with the hospital service, Dr. Aguirre accepts admission of this patient for rehydration and s/p prostatectomy complications. Departure - Departure Disposition: [facility] In[facility] Acute Clinical Impression: Bladder spasm, S/P prostatectomy, Pain management Condition: Fair Referrals: Mouna Marcos MD [Primary Care Provider] - As per Instructions Report Scribed for: Oseas Mccoy Report Scribed by: April Draper Date of Report: 12/12/18 Time of Report: 19:48
[2018-12-12] MEDS ORDERED: NS 1,000 ML IV ONE (19:53)
[2018-12-12] MEDS ORDERED: ONDANSETRON 4 MG/2 ML VIAL IVP ONE (19:53)
[2018-12-12] MEDS ORDERED: OXYBUTYNIN CHLORIDE 5 MG TAB PO ONE (20:46)
[2018-12-12] MEDS ORDERED: HYDROmorphONE/DILAUDID 1 MG/ML INJ ONE (20:56)
[2018-12-12] MEDS: HYDROmorphONE/DILAUDID 1 MG/ML INJ IVP ONE ×2 (21:02→21:57)
[2018-12-12] MEDS ORDERED: HYDROCODONE/APAP 5/325 TAB PO PRN (21:21)
[2018-12-12] MEDS ORDERED: OPIUM/BELLADONNA ALKALO SUPP PR PRN (21:46)
[2018-12-12] MEDS ORDERED: HYDROmorphONE/DILAUDID 1 MG/ML INJ IVP PRN (21:48)
[2018-12-12] MEDS ORDERED: traMADol 50 MG TAB PO PRN (21:48)
[2018-12-12] MEDS ORDERED: ACETAMINOPHEN 325 MG TAB PO PRN (21:48)
[2018-12-12] MEDS ORDERED: ONDANSETRON 4 MG/2 ML VIAL IVP PRN (21:48)
[2018-12-12] MEDS ORDERED: PROMETHAZINE HCL 25 MG/ML INJ IVP PRN (21:50)
[2018-12-12] MEDS ORDERED: HYDROmorphONE/DILAUDID 2 MG/ML INJ IVP ONE (21:57)
[2018-12-12 22:01] LABS: PLATELET COUNT 156 10^3/uL (150-400)
--- NOTE | 2018-12-12 22:26 | GHP ---
[f rep st] HISTORY AND PHYSICAL DATE OF ADMISSION: 12/12/2018 CHIEF COMPLAINT: Bladder pain. HISTORY: The patient is a 68-year-old male, who underwent a radical prostatectomy for prostate cance r on December [address] Suarez. He went home yesterday. Surgery was complicated by a mesenteric injury that was explored by Dr. Abbott, in the emergency room. He also went into some atrial fibrillat ion. He went home yesterday and was feeling okay although had barely eaten at the time of hospital d ischarge. As soon as he got home he was very weak and could barely sit up. Went right to bed. The next morning he woke up, that was this morning. He was nauseated. He could not eat anything. His u rine output was low. He called the urologist. They changed his catheter in the office this morning. He has had minimal urine output out of the catheter. Bladder scan emergency room was negative for retained urine. Dr. Norwood was called, on-call for Dr. Suarez. They think he is having bladder sp asms. They are recommending oxybutynin 5 mg p.o. three times daily, and they will see him in the [facility]. The patient has had almost no intake. He has constant nausea. He feels like his heart continues to race. He continues to suffer from hiccups. He got a dose of Thorazine. He is also getting hydrocod one. This is making very drowsy. PAST MEDICAL HISTORY: 1. Prostate cancer, status post radical prostatectomy. 2. Atrial fibrillation and AFlutter status post ablation x2. MEDICATIONS: Please see computerized record for full detailed list. ALLERGIES: No known drug allergies. SOCIAL HISTORY: He quit smoking 25 years ago. No alcohol. He lives with his . REVIEW OF SYSTEMS: Complete review of systems obtained. Review of systems negative on constitutiona l, HEENT, GI, pulmonary, cardiovascular, , hematology, skin, musculoskeletal, endocrine and psych e xcept for positives under HPI. FAMILY HISTORY: Reviewed, noncontributory to presenting complaint. PHYSICAL EXAMINATION: GENERAL APPEARANCE: Well-developed, well-nourished male, in no acute distress . VITAL SIGNS: Temperature 37.8, pulse 119, blood pressure 141/90, 92% on room air. EYES: Normal conjunctivae. Pupils react to light. ENT: Normal ears, nose. Hearing intact. Normal teeth. Orop harynx moist. NECK: Trachea midline. No thyromegaly. CHEST: Normal respiratory effort. LUNGS: Clear to auscultation bilaterally. CARDIOVASCULAR SYSTEM: Regular rhythm. No murmur. No extremity edema. ABDOMEN: Soft, nontender. No hepatosplenomegaly. SKIN: Warm, dry, intact. No rash. MUS CULOSKELETAL: No cyanosis or clubbing. Strength 5/5 upper and lower extremities. NEURO: Cranial n erves intact. Normal sensation to light touch. PSYCH ASSESSMEN: Alert and oriented x3. Normal aff ect. Normal judgment and insight. Normal memory. LABORATORY DATA: Laboratory studies from today are not yet done. They were ordered in the emergency room but not yet performed. Laboratory review from hospital discharge from his last hospitalization , labs done yesterday morning, showed a white count 8.5, hematocrit 42, platelets 222, sodium 134, po tassium 4.5, chloride 104, bicarb 23, BUN 19, creatinine 1.2, glucose 139. This case was discussed with Dr. Mccoy regarding ER course, medical record review, and he was disch arged yesterday. I reviewed his operative report including Dr. Abbott's contribution where the m esenteric injury was felt to just be superficial not involving any bowel or major structures. ASSESSMENT AND PLAN: 1. Bladder spasms. He had a catheter change this morning in the urology office. At this point in t he emergency room, appears to be functioning normally. Bladder scan is negative for any retention. Low urine output into the bag is probably due to severe dehydration. Urology will see him for consul tation in the morning. They are recommending oxybutynin 5 mg p.o. three times daily. 2. Prostate cancer status post radical prostatectomy. As above. 3. Atrial fibrillation/flutter. Status post previous ablation. He had been off all medications and out of atrial fibrillation ever since his ablation until his perioperative period, he did go back in to brief atrial fibrillation. We will continue to watch him on telemetry. If atrial fibrillation be comes a recurrent significant problem could consult Cardiology. CODE STATUS: Full. ADMISSION STATUS: Will admit to observation. Reevaluate tomorrow regarding ongoing hospitalization. DVT PROPHYLAXIS: High risk. Will place him on subcu Lovenox. /[id number]/MODL
[2018-12-12] MEDS: OXYBUTYNIN CHLORIDE 5 MG TAB PO SCH (23:11)
[2018-12-12] MEDS: NS 1,000 ML IV SCH (23:15)
[2018-12-13] MEDS: oxyCODONE IR 5 MG TAB PO PRN (01:38)
[2018-12-13 03:24] LABS: PLATELET COUNT 154 10^3/uL (150-400)
--- NOTE | 2018-12-13 08:18 | PDCONSULT ---
Chaplain Resident Note: RFC pain/bladder spasms post RALP Requested by Dr. Oseas Mccoy HPI POD 3 RALP, started having severe abdominal pain last night, nauseous, unable to tolerate PO intake. Temp was 100.something per . No urine in bag per patient. Called Urologist stitch bonding machine tender, Advised to go to ER for eval. In ER, found be tachy but cheatham in appropriate position and working appropriately. Abd soft. Oxybutynin started for bladder spasms. IVF initiated. He is feeling much better this AM. Has eaten malto meal for breakfast and doing OK w it so far. Abd pain much better, no spasms on Oxybutynin. ROS 10pt ROS performed, as stated in HPI, otherwise negative. PMH/PSH/FH/SH reviewed PE Gen NAD A&O CV regular Lungs Normal effort Abd soft, appropriately tender post surgery. No pain at port sites. Incisions CDI. cheatham in place, stat lock on some tension. Will have nursing move higher on thigh to prevent tension when standing. Clear urine in bag. No blood around meatus. ZOEY performed - empty prostate fossa, no mucosal abnormality palpated. Labs WBC 11.3 Cr 1 UA = +wbc, rbc, +leuks, but only Trace bacteria. Suspect due to catheter colonization and not true UTI. A/P POD 3 RALP, admitted for dehydration, bladder spasms, pain. Improved on IVF, antispasmodic. Exam overall normal post op changes. Pain - controlled on PO, IV meds. cheatham in place, urine clear, good UOP. Do not remove cheatham. Move stat lock so off of tension. Follow UCx. GI diet encouraged. Dulcolax supp given no BM since surgery. Ppx Recommend PT/OT, incentive spirometer, DVT ppx lovenox Will update Dr. Suarez and recommend observation today.
[2018-12-13] MEDS ORDERED: BISACODYL 10 MG SUPP PR PRN (08:25)
[2018-12-13] MEDS: SENNOSIDES/DOCUSATE SODIUM TAB PO SCH ×2 (09:09→21:16)
[2018-12-13] MEDS: ENOXAPARIN 40 MG/0.4 ML SYR SC SCH (09:09)
[2018-12-13] MEDS: OXYBUTYNIN CHLORIDE 5 MG TAB PO SCH ×3 (09:10→21:16)
[2018-12-13] MEDS: CEPHALEXIN 500 MG CAP PO SCH ×3 (09:10→21:16)
[2018-12-13] MEDS: POLYETHYLENE GLYCOL 3350 17 GM PKT PO SCH (09:10)
[2018-12-13] MEDS: NS 1,000 ML IV SCH (09:13)
--- NOTE | 2018-12-13 11:14 | ASMTCMCOM ---
CM Note CM Note Notes: Pts case discussed in tx rounds. Pt is a 68 y/o man admitted for post op prostatectomy pain, bladder spasm and dehydration. CM spoke to Lisa mabry/ [facility] and she has cleared pt to d/c home without any needs. CM available for changes. Plan: Independent Date Signed: 12/13/2018 11:13 AM Electronically Signed By:SAMIA Flanagan
--- NOTE | 2018-12-13 11:59 | SOAPPROG ---
SOAP Progress Note Assessment/Plan: Assessment: Post op Day #3 from robotic assisted robotic prostatectomy with Bilateral pelvic lymph node dissection readmitted due to abdominal pain and tachycardia Plan: Continue IV Fluid advance diet as tolerated oob to chair ambulate continue cheatham catheter not unexpected to have blood via penis after this procedure 12/13/18 11:56 Subjective: Feeling somewhat better today Has been walking some tolerating a bit of food Objective: abd soft, mild tympany, min discomfort cheatham in place draining large amount of tea colored urine Vital Signs Temp Pulse Resp BP Pulse Ox 37.4 C 82 20 114/57 L 92 12/13/18 11:31 12/13/18 11:31 12/13/18 11:31 12/13/18 11:31 12/13/18 11:31 Laboratory Results 12/13/18 03:10 12/13/18 03:10 12/12/18 12/13/18 12/14/18 05:59 05:59 05:59 Intake Total 1000 Output Total 500 Balance 500 ICD10 Worksheet Patient Problems: Problems Problem Status Onset Bladder spasm Acute Pain management Acute S/P prostatectomy Acute Atrial fibrillation Acute Dizziness Acute
--- NOTE | 2018-12-13 13:03 | HOSPPROG ---
Hospitalist Progress Note Assessment/Plan: 68yo M recently discharged after radical prostatectomy here with bladder pain c/ w spasm. #Bladder spasm: Much improved, cheatham working appropriately. Continue oxybutynin. Urology following. #Constipation: Bowel regimen with suppository ordered. #Acute hypoxia: Requiring 1-2L. Likely post-op atelectasis. Incentive spirometry ordered. OOB to chair. #Paroxysmal atrial fibrillation/flutter: Sinus on tele. S/p ablation in past. Not on wendy blockers or anticoagulation. #Nausea, dehydration: Improving. IVF, anti-emetics PRN. #? UTI: Cephalexin was started by urology. Follow urine culture. #Prostate cancer VTE ppx: LMWH Diet: regular Code: full Dispo: Switch to inpatient, ADD tomorrow if clinically improved Subjective: Feeling much better after starting oxybutynin, no pain meds needed. Also ate breakfast and kept down. Some red tinge to urine. Objective: Vital Signs Temp Pulse Resp BP Pulse Ox 37.4 C 82 20 114/57 L 92 12/13/18 11:31 12/13/18 11:31 12/13/18 11:31 12/13/18 11:31 12/13/18 11:31 Laboratory Results 12/13/18 03:10 12/13/18 03:10 12/12/18 12/13/18 12/14/18 05:59 05:59 05:59 Intake Total 1000 Output Total 500 Balance 500 - Physical Exam Constitutional: no apparent distress, appears nourished, not in pain Eyes: PERRL, anicteric sclera, EOMI Ears, Nose, Mouth, Throat: moist mucous membranes, hearing normal, ears appear normal, no oral mucosal ulcers Cardiovascular: regular rate and rhythym, no murmur, rub, or gallop, No edema Respiratory: no respiratory distress, no rales or rhonchi, clear to auscultation Gastrointestinal: normoactive bowel sounds, no palpable masses, tenderness ( diffusely), distension, other (laparoscopic sites c/d/i, ) Genitourinary: cheatham in urethra Skin: no rashes or abrasions, no fluctuance, no induration Musculoskeletal: full muscle strength, no muscle tenderness, normal joint ROM Neurologic: AAOx3, sensation intact bilaterally Psychiatric: interacting appropriately, not anxious, not encephalopathic, thought process linear ICD10 Worksheet Patient Problems: Problems Problem Status Onset Bladder spasm Acute Pain management Acute S/P prostatectomy Acute Atrial fibrillation Acute Dizziness Acute
--- NOTE | 2018-12-13 15:04 | PDMN ---
Medical Necessity Medical necessity: Change to IP, as of 12/13/18, per MD & MCG MG-UD Urologic Disease; los >2 mn for ongoing management of bladder pain w/spasms, possible UTI , acute hypoxia (O2 80% on RA-requiring 2L to maintain sats >90%), nausea & dehydration s/p radical prostatectomy; urine cx pending; requiring further monitoring, IVFs & med management
[2018-12-14] MEDS: oxyCODONE IR 5 MG TAB PO PRN (05:35)
[2018-12-14] MEDS ORDERED: METOPROLOL TARTRATE 5 MG/5 ML INJ IVP ONE (07:28)
[2018-12-14] MEDS: ENOXAPARIN 40 MG/0.4 ML SYR SC SCH (08:23)
[2018-12-14] MEDS: SENNOSIDES/DOCUSATE SODIUM TAB PO SCH (08:24)
[2018-12-14] MEDS: CEPHALEXIN 500 MG CAP PO SCH ×2 (08:24→15:00)
[2018-12-14] MEDS: POLYETHYLENE GLYCOL 3350 17 GM PKT PO SCH (08:24)
[2018-12-14] MEDS: OXYBUTYNIN CHLORIDE 5 MG TAB PO SCH ×3 (08:24→18:29)
--- NOTE | 2018-12-14 08:47 | HOSPPROG ---
Hospitalist Progress Note Assessment/Plan: 68yo M recently discharged after radical prostatectomy here with bladder pain c/ w spasm. Developed rapid atrial fibrillation this AM. #Rapid afib: Resolved with one dose of metoprolol. Starting PO metoprolol 12.5mg BID. [id number]=5. Aspirin would be suitable but will hold in post- operative period. #Bladder spasm: Much improved, cheatham working appropriately. Continue oxybutynin. Urology following. #Hematuria: Expected post-operatively. Improving. #Constipation: Had BM today. #Acute hypoxia: Requiring 1-2L. Likely post-op atelectasis. Incentive spirometry ordered. OOB to chair. Home O2 ordered. #Nausea, dehydration: Improving. IVF, anti-emetics PRN. #? UTI: Cephalexin was started by urology. Urine culture negative #Prostate cancer VTE ppx: LMWH Diet: regular Code: full Dispo: Dc later today Subjective: Episode of rapid Afib this morning, broke with one dose of 5mg IV metoprolol. Asymptomatic with this. Some blood around penis, but less so than yestreday. Had BM this PM. Minimal abdominal pain. Objective: Vital Signs Temp Pulse Resp BP Pulse Ox 37.2 C 137 H 18 112/61 96 12/14/18 07:13 12/14/18 07:47 12/14/18 07:13 12/14/18 07:47 12/14/18 07:13 12/13/18 12/14/18 12/15/18 05:59 05:59 05:59 Intake Total 1850 950 Output Total 3250 Balance -1400 950 - Physical Exam Constitutional: no apparent distress, appears nourished, not in pain Eyes: PERRL, anicteric sclera, EOMI Ears, Nose, Mouth, Throat: moist mucous membranes, hearing normal, ears appear normal, no oral mucosal ulcers Cardiovascular: regular rate and rhythym, no murmur, rub, or gallop, No edema Respiratory: no respiratory distress, no rales or rhonchi, clear to auscultation Gastrointestinal: normoactive bowel sounds, soft, non-tender abdomen, no palpable masses Genitourinary: cheatham in urethra Skin: no rashes or abrasions, no fluctuance, no induration Musculoskeletal: full muscle strength, no muscle tenderness, normal joint ROM Neurologic: AAOx3 Psychiatric: interacting appropriately, not anxious, not encephalopathic, thought process linear ICD10 Worksheet Patient Problems: Problems Problem Status Onset Bladder spasm Acute Pain management Acute S/P prostatectomy Acute Atrial fibrillation Acute Dizziness Acute
--- NOTE | 2018-12-14 09:51 | SOAPPROG ---
SOAP Progress Note Assessment/Plan: Assessment: Post op Day #4 from robotic assisted robotic prostatectomy with Bilateral pelvic lymph node dissection readmitted due to abdominal pain and tachycardia Improving today Asking about discharge Ambulating Adriana diet Episode of Rapid Afib this am Plan: Continue cheatham catheter not unexpected to have blood via penis after this procedure no urological intervention needed at this time ok for discharge from our standpoint once cardiac issues resolved 12/13/18 11:56 12/14/18 09:49 Subjective: feeling better less abd pain no mention of spasms Objective: abd soft wounds healing well Vital Signs Temp Pulse Resp BP Pulse Ox 37.2 C 137 H 18 112/61 96 12/14/18 07:13 12/14/18 07:47 12/14/18 07:13 12/14/18 07:47 12/14/18 07:13 12/13/18 12/14/18 12/15/18 05:59 05:59 05:59 Intake Total 1850 950 Output Total 3250 Balance -1400 950 ICD10 Worksheet Patient Problems: Problems Problem Status Onset Bladder spasm Acute Pain management Acute S/P prostatectomy Acute Atrial fibrillation Acute Dizziness Acute
--- NOTE | 2018-12-14 11:19 | PDHOMEO2F ---
Home Oxygen Face to Face Home Orders: I certify that a physician or a nurse practitioner or physician's catering assistant has had a [id number] encounter with this patient on the date of this order due to the diagnosis listed, which relates to the primary reason the patient requires home oxygen. Alternative treatments have been tried, or considered, and deemed ineffective. It is anticipated that supplemental oxygen will result in improvement with treatment. Home oxygen qualifying diagnosis: respiratory failure with hypoxia SpO2 on room air (%): 85 Frequency of home oxygen needed: continuous Home oxygen liters per minute: 1 Home oxygen delivery device: nasal cannula Concentrator: Yes E-tanks for mobility and back up: Yes If ordering portable O2, is the patient mobile in the home?: Yes I certify that, based on these findings, the home oxygen is medically necessary for this patient for the following length of time. Length of time home oxygen needed: 99 years
--- NOTE | 2018-12-14 11:45 | CPEKG ---
Test Reason : OPEN Blood Pressure : / mmHG Vent. Rate : 085 BPM Atrial Rate : 085 BPM P-R Int : 163 ms QRS Dur : 098 ms QT Int : 374 ms P-R-T Axes : 076 036 027 degrees QTc Int : 445 ms Sinus rhythm Abnormal R-wave progression, early transition Borderline T abnormalities, anterior leads Confirmed by Trip Villanueva ([id number]) on 12/14/2018 11:44:38 AM Referred By: Eboni Aguirre Confirmed By:Trip Villanueva
--- NOTE | 2018-12-14 11:48 | CPEKG ---
Test Reason : OPEN Blood Pressure : / mmHG Vent. Rate : 072 BPM Atrial Rate : 072 BPM P-R Int : 159 ms QRS Dur : 104 ms QT Int : 381 ms P-R-T Axes : 073 054 024 degrees QTc Int : 417 ms Sinus rhythm Abnormal R-wave progression, early transition Confirmed by Trip Villanueva ([id number]) on 12/14/2018 11:48:14 AM Referred By: Eboni Aguirre Confirmed By:Trip Villanueva
[2018-12-14] MEDS: METOPROLOL TARTRATE 25 MG TAB PO SCH ×2 (13:06→18:30)
[2018-12-14 15:05] VITALS: BP 130/65
--- NOTE | 2018-12-14 17:13 | PDDCSUM ---
Discharge Summary Discharge Summary: Date of Admission: 12/12/2018 Date of Discharge: 12/14/2018 Consultants: urology Discharge Diagnoses: 1. Atrial fibrillation w/RVR 2. Bladder spasm 3. Hematuria 4. Acute hypoxia 5. Prostate cancer s/p robotic assisted prostatectomy w/bilateral pelvic LN dissection 6. Non-sustained VT (single episode) Brief Hospital Course: 68yo M recently discharged after radical prostatectomy presented with lower abdominal pain. This was consistent with bladder spasm. He was started on oxybutynin and symptoms resolved. He was also constipated and felt much better after having a BM. Urology was consulted. He did have some hematuria however this is somewhat expected after this surgery. His surgical sites looked good. He is tolerating a diet and pain well controlled at time of discharge. He was discharged with a cheatham catheter in place. He did have one episode of rapid atrial fibrillation during this hospital stay. He converted to sinus rhythm after one dose of IV metoprolol. He was started on metoprolol 25mg BID. His [id number]=1 and I recommend aspirin 81mg daily once hematuria resolves. Of note, he has a history of atrial fibrillation and underwent PVI in 2015. I recommended that he re-establish with cardiology (hasn' t seen since 2017). Lastly, he did appear to have an approximate 10 second run of VT on telemetry. This was prior to initiating beta blockade and did not recur. Medications: Please refer to EMR for complete list. I sent prescriptions for oxybutynin 5mg TID #90 and metoprolol 25mg BID #60 to his pharmacy. Follow Up Plan: 1. Dr Suarez on Sunday 12/17 2. PCP in 7-10 days 3. Recommend referral to cardiology Physical Exam: See exam from today's progress note.
--- NOTE | 2018-12-17 05:52 | CPEKG ---
Test Reason : tachycardia Blood Pressure : / mmHG Vent. Rate : 091 BPM Atrial Rate : 169 BPM P-R Int : 164 ms QRS Dur : 076 ms QT Int : 360 ms P-R-T Axes : 159 040 021 degrees QTc Int : 443 ms Atrial fibrillation Ventricular premature complex Abnormal R-wave progression, early transition Confirmed by Tom Tomas ([id number]) on 12/17/2018 5:52:05 AM Referred By: Eboni Aguirre Confirmed By:Tom Tomas
== END 2018-12-14 18:20 | disposition home or self-care (01) | DRG 699 ==
LOC: F2W 22:29 → OBSVTOIN 12-13 13:10
PROVIDERS: ADMIT Internal Medicine; ATTEND Internal Medicine
DX: N32.89 Other specified disorders of bladder (principal); I47.2 Ventricular tachycardia; N99.89 Other postprocedural complications and disorders of genitourinary system; Z85.46 Personal history of malignant neoplasm of prostate; K59.00 Constipation, unspecified; E86.0 Dehydration; R09.02 Hypoxemia; I48.0 Paroxysmal atrial fibrillation; Z90.79 Acquired absence of other genital organ(s)
CPT/HCPCS: 96374; 97161-GP; 97166-GO; 97535-GO; G0378; J1170; J1650; J2405

== ENCOUNTER → 2018-12-17 | Outpatient (CLI) | payer OTHER, MEDICARE ==
[~2018-12-17] MED LIST changes: -IOPAMIDOL (ISOVUE-300) 100 ML BTL ONE; +IOTHALAMATE MEG (CYSTO-CONRAY II) 250 ML VIAL BLADIN ONE
== END ==
LOC: FIMAGING 11:56
PROVIDERS: ATTEND Urology
DX: C61 Malignant neoplasm of prostate (principal)
CPT/HCPCS: 74430; Q9961

== ENCOUNTER → 2018-12-24 | Outpatient (CLI) | payer OTHER, MEDICARE | LOC: FIMAGING 08:07 | PROVIDERS: ATTEND Urology | PROC: BT00YZZ Plain Radiography of Bladder using Other Contrast (ICD-10-PCS; principal; 2018-12-24) | DX: C61 Malignant neoplasm of prostate (principal); R39.89 Other symptoms and signs involving the genitourinary system; Z90.79 Acquired absence of other genital organ(s) | CPT/HCPCS: 74430; Q9961 ==

== ENCOUNTER → 2019-01-01 | Outpatient (CLI) | payer OTHER, MEDICARE | LOC: FIMAGING 08:04 | PROVIDERS: ATTEND Urology | DX: C61 Malignant neoplasm of prostate (principal) | CPT/HCPCS: 74430; Q9961 ==